=== PATIENT | male | born 1980 | race Caucasian/White ===

== ENCOUNTER 2019-03-24 18:12 | Emergency (ER) | payer OTHER ==
--- NOTE | 2019-03-24 19:07 | RAD REPORT ---
EXAM DESCRIPTION: CT - Head Brain Wo Cont - 03/24/2019 7:02 pm CLINICAL HISTORY: HEADACHE COMPARISON: No comparisons TECHNIQUE: All CT scans are performed using dose optimization technique as appropriate and may inclu de automated exposure control or mA/KV adjustment according to patient size. FINDINGS: No intracranial hemorrhage, hydrocephalus or extra-axial fluid collection.No areas of brai n edema or evidence of midline shift. The paranasal sinuses and mastoids are clear. The calvarium is intact. IMPRESSION: No acute intracranial abnormality.
--- NOTE | 2019-03-24 19:16 | RAD REPORT ---
EXAM DESCRIPTION: RAD - Chest Single View - 03/24/2019 7:11 pm CLINICAL HISTORY: COUGH Chest pain. COMPARISON: No comparisons FINDINGS: Portable technique limits examination quality. The lungs are grossly clear. The heart is normal in size. No displaced fractures. IMPRESSION: No acute intrathoracic process suspected.
[2019-03-24] MEDS ORDERED: NA CHLORIDE 0.9% 1,000 ML ONE (19:28)
[2019-03-24 19:32] LABS: Absolute Lymphocytes (CBC) 2.1 K/uL (0.7-4.9); Basophils % 1.2 % (0-1.3); Hematocrit 43.8 % (39.6-49.0); Lymphocytes % 20.5 % (15.3-44.8); MPV 9.1 fL (7.6-11.3); RBC Red Blood Cell Count 4.82 M/uL (4.33-5.43)
[2019-03-24 19:34] LABS: Protime INR 1.05
--- NOTE | 2019-03-24 20:29 | RAD REPORT ---
EXAM DESCRIPTION: - CP - 03/24/2019 8:20 pm CLINICAL HISTORY: DIZZINESS Headache, drowsiness COMPARISON: No comparisons TECHNIQUE: Real-time sonographic evaluation of both carotid systems was performed. Doppler interroga tion was performed with waveform tracing bilaterally. FINDINGS: Normal high resistance waveforms are noted in both external carotid arteries. The common c arotid arteries and internal carotid arteries show normal low resistance waveforms. No significant plaque formation is seen. Peak systolic and end diastolic velocity values and the ICA/ CCA ratios are in the non-hemodynamically significant range. Antegrade flow seen in both vertebral arteries. IMPRESSION: No significant atherosclerotic changes noted. No evidence of a hemodynamically significant stenosis.
[2019-03-24 20:46] LABS: ALT/SGPT 73 U/L (12-78); AST/SGOT 35 U/L (15-37); Albumin 3.3 g/dL (3.4-5.0); Alkaline Phosphatase 75 U/L (45-117); BUN Blood Urea Nitrogen 11 mg/dL (7-18); Bicarbonate 31 mmol/L (21-32); Bilirubin Direct < 0.1 mg/dL (0-0.2); Bilirubin Total 0.3 mg/dL (0.2-1.0); Glucose Level 209 mg/dL (74-106); Magnesium 2.1 mg/dL (1.8-2.4); NT PRO-BNP 12 pg/mL (<125); Potassium 4.2 mmol/L (3.5-5.1); Protein, Total 7.6 g/dL (6.4-8.2); Sodium Level 140 mmol/L (136-145); Troponin (Emerg Dept Use Only) < 0.02 ng/mL (0.0-0.045)
--- NOTE | 2019-03-24 21:05 | ER ---
Nurse's Notes [facility] Name: Krystal Crook Age: 38 yrs Sex: Male : 1980 Arrival Date: 03/24/2019 Time: 18:15 Bed 15 Private MD: Diagnosis: Essential (primary) hypertension;Type 2 diabetes mellitus;Vomiting;Obesity, unspecified Presentation: 03/24 18:24 Presenting complaint: Patient states: Dizziness, bodyaches with nausea/vomiting, sg reports feeling this type of way for 2 days with no improvement today. Transition of care: patient was not received from another setting of care. Onset of symptoms was March 24, 2019. Risk Assessment: Do you want to hurt yourself or someone else? Patient reports no desire to harm self or others. Initial Sepsis Screen: Does the patient meet any 2 criteria? No. Patient's initial sepsis screen is negative. Does the patient have a suspected source of infection? No. Patient's initial sepsis screen is negative. Care prior to arrival: None. 18:24 Method Of Arrival: Ambulatory sg 18:24 Acuity: ISABEL 4 sg Historical: - Allergies: 18:24 PENICILLINS; sg - Home Meds: 18:24 Metformin Oral [Active]; sg - PMHx: 18:24 Diabetes - NIDDM; sg - PSHx: 18:24 Tonsillectomy; sg - Immunization history:: Adult Immunizations not up to date. - Social history:: Smoking status: Patient/guardian denies using tobacco. - Ebola Screening: : Patient negative for fever greater than or equal to 101.5 degrees Fahrenheit, and additional compatible Ebola Virus Disease symptoms Patient denies exposure to infectious person Patient denies travel to an Ebola-affected area in the 21 days before illness onset No symptoms or risks identified at this time. - Family history:: not pertinent. Screenin:47 Abuse screen: Denies threats or abuse. Denies injuries from another. Nutritional wh screening: No deficits noted. Tuberculosis screening: No symptoms or risk factors identified. Fall Risk None identified. Assessment: 19:15 General: Appears in no apparent distress. Behavior is calm, cooperative, appropriate wh for age. Pain: Denies pain. Neuro: Level of Consciousness is awake, alert, obeys commands, Oriented to person, place, time, situation, Appropriate for age. Cardiovascular: Heart tones S1 S2. Respiratory: Airway is patent Respiratory effort is even, unlabored, Respiratory pattern is regular, symmetrical, Breath sounds are clear bilaterally. GI: Abdomen is flat, non-distended, Reports nausea. : No signs and/or symptoms were reported regarding the genitourinary system. EENT: No signs and/or symptoms were reported regarding the EENT system. Derm: Skin is intact, is healthy with good turgor, Skin is pink, warm \T\ dry. normal. Musculoskeletal: Circulation, motion, and sensation intact. 20:15 Reassessment: Patient appears in no apparent distress at this time. No changes from previously documented assessment. Patient and/or family updated on plan of care and expected duration. Pain level reassessed. Patient is alert, oriented x 3, equal unlabored respirations, skin warm/dry/pink. 21:16 Reassessment: Patient appears in no apparent distress at this time. No changes from previously documented assessment. Patient and/or family updated on plan of care and expected duration. Pain level reassessed. Patient is alert, oriented x 3, equal unlabored respirations, skin warm/dry/pink. Patient states feeling better. Patient states symptoms have improved. Vital Signs: 18:22 BP 146 / 72; Pulse 87; Resp 20; Temp 98.4; Pulse Ox 100% on R/A; Weight 145.15 kg; sg Height 6 ft. 0 in. (182.88 cm); Pain 6/10; 19:47 BP 143 / 73; Pulse 94; Resp 18; Pulse Ox 97% on R/A; wh 21:00 BP 135 / 72; Pulse 96; Resp 18; Pulse Ox 99% on R/A; wh 18:22 Body Mass Index 43.40 (145.15 kg, 182.88 cm) ED Course: 18:15 Patient arrived in ED. am2 18:18 Jefferson Acuña MD is Attending Physician. axel 18:22 Ping Ruiz, RN is Primary Nurse. ph 18:22 Arm band placed on. sg 18:25 Triage completed. sg 19:02 CT Head Brain wo Cont In Process Unspecified. EDMS 19:03 CT completed. Patient tolerated procedure well. Patient moved back from CT. vm2 19:11 XRAY Chest (1 view) In Process Unspecified. EDMS 19:20 Inserted saline lock: 20 gauge in right antecubital area, using aseptic technique. Blood collected. 19:47 Patient has correct armband on for positive identification. Bed in low position. Call light in reach. Side rails up X 1. quality assurance monitor body on. Pulse ox on. NIBP on. 20:21 Carotid Artery Bilateral In Process Unspecified. EDMS 21:05 Lukas Loera MD is Referral Physician. [facility] 21:18 No provider procedures requiring assistance completed. IV discontinued, intact, bleeding controlled, No redness/swelling at site. Administered Medications: 19:30 Drug: NS 0.9% 1000 ml Route: IV; Rate: 1 bolus; Site: right antecubital; 21:16 Follow up: Response: No adverse reaction; IV Status: Completed infusion 21:05 Drug: Aspirin 162 mg Route: PO; 21:16 Follow up: Response: No adverse reaction Outcome: 21:05 Discharge ordered by . [facility] 21:18 Discharged to home ambulatory. 21:18 Condition: stable 21:18 Discharge instructions given to patient, Instructed on discharge instructions, follow up and referral plans. medication usage, POC Demonstrated understanding of instructions, follow-up care, medications, POC Prescriptions given X 1. 21:19 Patient left the ED. Signatures: Dispatcher [employer] EDMS Elias Su RN RN sg Anderson, Corey, MD MD cha Hall, Patricia, RN Kina Barahona ph 2 Loreto Sanchez 2 Charity Valenzuela Brittney Frost cm6 Corrections: (The following items were deleted from the chart) 19:47 19:15 GI: Abdomen is flat, non-distended, [facility] 20:35 20:30 BP 135 / 72; Resp 22bpm; Pulse Ox 91%; cm6 cm6 21:17 21:16 Reassessment: Patient appears in no apparent distress at this time. No changes wh from previously documented assessment. Patient and/or family updated on plan of care and expected duration. Pain level reassessed. Patient states feeling better. Patient states symptoms have improved.
--- NOTE | 2019-03-24 21:06 | EDPHYS ---
Physician Documentation [facility] Name: Krystal Crook Age: 38 yrs Sex: Male : 1980 Arrival Date: 03/24/2019 Time: 18:15 Bed 15 Private MD: ED Physician Jefferson Acuña HPI: 03/24 18:51 This 38 yrs old Male presents to ER via Ambulatory with complaints of axel Dizziness, Nausea/Vomiting, Feels like passing out. 18:51 The patient presents with dizziness, feeling faint, lightheadedness. Onset: The axel symptoms/episode began/occurred 1 day(s) ago. Context: occurred at home, occurred while the patient was sitting. Modifying factors: The symptoms are alleviated by nothing, the symptoms are aggravated by nothing. Associated signs and symptoms: The patient has no apparent associated signs or symptoms. Severity of symptoms: At their worst the symptoms were moderate in the emergency department the symptoms are unchanged. Patient's baseline: Neuro: alert and fully oriented. The patient has not experienced similar symptoms in the past. Historical: - Allergies: 18:24 PENICILLINS; sg - Home Meds: 18:24 Metformin Oral [Active]; sg - PMHx: 18:24 Diabetes - NIDDM; sg - PSHx: 18:24 Tonsillectomy; sg - Immunization history:: Adult Immunizations not up to date. - Social history:: Smoking status: Patient/guardian denies using tobacco. - Ebola Screening: : Patient negative for fever greater than or equal to 101.5 degrees Fahrenheit, and additional compatible Ebola Virus Disease symptoms Patient denies exposure to infectious person Patient denies travel to an Ebola-affected area in the 21 days before illness onset No symptoms or risks identified at this time. - Family history:: not pertinent. ROS: 18:51 Constitutional: Negative for fever, chills, and weight loss, Eyes: Negative for injury, axel pain, redness, and discharge, ENT: Negative for injury, pain, and discharge, Neck: Negative for injury, pain, and swelling, Cardiovascular: Negative for chest pain, palpitations, and edema, Respiratory: Negative for shortness of breath, cough, wheezing, and pleuritic chest pain, Back: Negative for injury and pain, : Negative for injury, bleeding, discharge, and swelling, MS/Extremity: Negative for injury and deformity, Skin: Negative for injury, rash, and discoloration, Psych: Negative for depression, anxiety, suicide ideation, homicidal ideation, and hallucinations, Allergy/Immunology: Negative for hives, rash, and allergies, Endocrine: Negative for neck swelling, polydipsia, polyuria, polyphagia, and marked weight changes, Hematologic/Lymphatic: Negative for swollen nodes, abnormal bleeding, and unusual bruising. 18:51 Abdomen/GI: Positive for nausea and vomiting. 18:51 Neuro: Positive for dizziness, tingling. Exam: 18:51 Constitutional: This is a well developed, well nourished patient who is awake, alert, axel and in no acute distress. Head/Face: Normocephalic, atraumatic. Eyes: Pupils equal round and reactive to light, extra-ocular motions intact. Lids and lashes normal. Conjunctiva and sclera are non-icteric and not injected. Cornea within normal limits. Periorbital areas with no swelling, redness, or edema. ENT: Nares patent. No nasal discharge, no septal abnormalities noted. Tympanic membranes are normal and external auditory canals are clear. Oropharynx with no redness, swelling, or masses, exudates, or evidence of obstruction, uvula midline. Mucous membranes moist. Neck: Trachea midline, no thyromegaly or masses palpated, and no cervical lymphadenopathy. Supple, full range of motion without nuchal rigidity, or vertebral point tenderness. No Meningismus. Chest/axilla: Normal chest wall appearance and motion. Nontender with no deformity. No lesions are appreciated. Cardiovascular: Regular rate and rhythm with a normal S1 and S2. No gallops, murmurs, or rubs. Normal PMI, no JVD. No pulse deficits. Respiratory: Lungs have equal breath sounds bilaterally, clear to auscultation and percussion. No rales, rhonchi or wheezes noted. No increased work of breathing, no retractions or nasal flaring. Abdomen/GI: Soft, non-tender, with normal bowel sounds. No distension or tympany. No guarding or rebound. No evidence of tenderness throughout. Back: No spinal tenderness. No costovertebral tenderness. Full range of motion. Male : Normal genitalia with no discharge or lesions. Skin: Warm, dry with normal turgor. Normal color with no rashes, no lesions, and no evidence of cellulitis. MS/ Extremity: Pulses equal, no cyanosis. Neurovascular intact. Full, normal range of motion. Neuro: Awake and alert, GCS 15, oriented to person, place, time, and situation. Cranial nerves II-XII grossly intact. Motor strength 5/5 in all extremities. Sensory grossly intact. Cerebellar exam normal. Normal gait. Psych: Awake, alert, with orientation to person, place and time. Behavior, mood, and affect are within normal limits. Vital Signs: 18:22 BP 146 / 72; Pulse 87; Resp 20; Temp 98.4; Pulse Ox 100% on R/A; Weight 145.15 kg; sg Height 6 ft. 0 in. (182.88 cm); Pain 6/10; 19:47 BP 143 / 73; Pulse 94; Resp 18; Pulse Ox 97% on R/A; wh 21:00 BP 135 / 72; Pulse 96; Resp 18; Pulse Ox 99% on R/A; wh 18:22 Body Mass Index 43.40 (145.15 kg, 182.88 cm) MDM: 18:18 Patient medically screened. [facility] 18:53 Data reviewed: vital signs, nurses notes, lab test result(s), EKG, radiologic studies, [facility] CT scan, plain films. 03/24 18:51 Order name: Basic Metabolic Panel; Complete Time: 21:04 [facility] 03/24 18:51 Order name: CBC with Diff; Complete Time: 19:43 [facility] 03/24 18:51 Order name: LFT's; Complete Time: 21:04 [facility] 03/24 18:51 Order name: Magnesium; Complete Time: 21:04 [facility] 03/24 18:51 Order name: NT PRO-BNP; Complete Time: 21:04 [facility] 03/24 18:51 Order name: PT-INR; Complete Time: 19:43 [facility] 03/24 18:51 Order name: Troponin (emerg Dept Use Only); Complete Time: 21:04 [facility] 03/24 18:51 Order name: XRAY Chest (1 view); Complete Time: 19:43 [facility] 03/24 18:51 Order name: EKG; Complete Time: 18:52 [facility] 03/24 18:51 Order name: Cardiac monitoring; Complete Time: 19:21 [facility] 03/24 18:51 Order name: CT Head Brain wo Cont; Complete Time: 19:43 [facility] 03/24 18:51 Order name: US Carotid Artery Bilateral; Complete Time: 20:45 [facility] 03/24 18:51 Order name: EKG - Nurse/Tech; Complete Time: 19:21 [facility] 03/24 18:51 Order name: IV Saline Lock; Complete Time: 19:21 [facility] 03/24 18:51 Order name: Labs collected and sent; Complete Time: 19:21 [facility] 03/24 18:51 Order name: O2 Per Protocol; Complete Time: 19: [facility] 03/24 18:51 Order name: O2 Sat Monitoring; Complete Time: 19:21 [facility] Administered Medications: 19:30 Drug: NS 0.9% 1000 ml Route: IV; Rate: 1 bolus; Site: right antecubital; 21:16 Follow up: Response: No adverse reaction; IV Status: Completed infusion 21:05 Drug: Aspirin 162 mg Route: PO; 21:16 Follow up: Response: No adverse reaction Disposition: 03/24/19 21:05 Discharged to Home. Impression: Essential (primary) hypertension, Type 2 diabetes mellitus, Vomiting, Obesity, unspecified. - Condition is Stable. - Discharge Instructions: Type 2 Diabetes Mellitus, Diagnosis, Adult, Hypertension, Nausea and Vomiting, Adult, Obesity, Adult, Nausea and Vomiting, Adult, [id number], Hypertension, [id number], How to Take Your Blood Pressure, [id number]-bh-[id number], Aspirin and Your Heart, Type 2 Diabetes Mellitus, Diagnosis, Adult, Fsly-[id number], Managing Your Hypertension. - Prescriptions for Zofran 4 mg Oral Tablet - take 1 tablet by ORAL route every 12 hours As needed; 20 tablet. - Medication Reconciliation Form, Thank You Letter, Antibiotic Education, Prescription Opioid Use form. - Follow up: Private Physician; When: 2 - 3 days; Reason: Recheck today's complaints, Continuance of care, Re-evaluation by your physician. Follow up: Lukas Loera MD; When: 2 - 3 days; Reason: Recheck today's complaints, Continuance of care, Re-evaluation by your physician. - Problem is new. - Symptoms have improved. Signatures: Dispatcher [employer] Elias Stone RN RN sg Anderson, Corey, MD MD cha Habalo, Winsy Corrections: (The following items were deleted from the chart) 21:19 21:05 03/24/2019 21:05 Discharged to Home. Impression: Essential (primary) wh hypertension; Type 2 diabetes mellitus; Vomiting; Obesity, unspecified. Condition is Stable. Discharge Instructions: Type 2 Diabetes Mellitus, Diagnosis, Adult, Hypertension, Nausea and Vomiting, Adult, Obesity, Adult, Nausea and Vomiting, Adult, Mtfk-ry-[id number], Hypertension, [id number]-hm-[id number], How to Take Your Blood Pressure, Etuh-fj-Ndde, Type 2 Diabetes Mellitus, Diagnosis, Adult, Vglr-rb-[id number], Managing Your Hypertension. Prescriptions for Zofran 4 mg Oral Tablet - take 1 tablet by ORAL route every 12 hours As needed; 20 tablet. and Forms are Medication Reconciliation Form, Thank You Letter, Antibiotic Education, Prescription Opioid Use. Follow up: Private Physician; When: 2 - 3 days; Reason: Recheck today's complaints, Continuance of care, Re-evaluation by your physician. Follow up: Lukas Loera; When: 2 - 3 days; Reason: Recheck today's complaints, Continuance of care, Re-evaluation by your physician. Problem is new. Symptoms have improved. axel
[2019-03-24] MEDS ORDERED: ASPIRIN 81 MG CHEWABLE TABLET ONE (21:11)
[2019-03-24 21:25] VITALS: TEMP 98.4
[2019-03-24 21:28] VITALS: BP 135/72; O2SAT 99
--- NOTE | 2019-03-25 12:21 | EKG ---
Test Date: 2019-03-24 Test Time: 19:13:34 [employer]: ELIZABETH MEASUREMENT RESULTS: Intervals: Rate: 94 MD: 154 QRSD: 76 QT: 346 QTc: 432 [place]: P: 57 MD: 154 QRS: 17 T: 22 INTERPRETIVE STATEMENTS: Normal sinus rhythm Normal ECG No previous ECG available for comparison Electronically Signed On 03-25-19 12:20:36 [employer] by Hudson Lyons
== END 2019-03-24 21:19 | disposition home or self-care (01) ==
LOC: ER 18:12
DX: I10 Essential (primary) hypertension (principal); E11.9 Type 2 diabetes mellitus without complications; R11.10 Vomiting, unspecified; E66.9 Obesity, unspecified; Z88.0 Allergy status to penicillin
CPT/HCPCS: 96361; 93005; 85025; 80048; 36415; 83735; 85610; 80076; 84484; 83880; 70450; 71045; 93880; 96360; 99285; J7030